=== PATIENT | male | born 1955 | race Caucasian/White ===

== ENCOUNTER 2016-10-04 18:33 | Inpatient (IN) | payer BC ==
[~2016-10-04] VITALS: Ht 177.8 cm; Wt 112.4 kg
[2016-10-04] MEDS ORDERED: LIPITOR 40MG TA40 MG PO (18:48)
[2016-10-04] MEDS ORDERED: GLUCOPHAGE1000 MG PO (18:48)
[2016-10-04] MEDS ORDERED: PRINZIDE 25 MG-1 TAB PO (18:49)
[2016-10-04] MEDS ORDERED: DIABETA 5MG5 MG/TAB PO (18:49)
[2016-10-04] MEDS ORDERED: ASPIRIN 81M81 MG/TA2 PO (18:50)
[2016-10-04 19:19] LABS: MEAN CELL VOLUME 66 fl (80.0-100.0); MEAN CORPUSCULAR HGB CONC 28 g/dl (33.0-37.0); MEAN PLATELET VOLUME 10.1 fl (7.4-10.4); PLATELET COUNT 295 K/mm3 (130-400); RED BLOOD COUNT 2.98 M/mm3 (4.20-5.60); REDCELL DISTRIBUTION WIDTH-CV 16.2 % (11.5-14.5); WHITE BLOOD COUNT 12.5 K/mm3 (4.8-10.8)
[2016-10-04 19:24] LABS: ADD PATHOLOGY DIFF REVIEW NO; HEMATOCRIT 19.6 % (42.0-52.0); HEMOGLOBIN 5.4 g/dl (13.5-18.0); MEAN CORPUSCULAR HEMOGLOBIN 18 pg (27.0-31.0)
[2016-10-04 19:25] LABS: INR 1.1 (0.8-3.0); PROTHROMBIN TIME 12.6 SECONDS (9.7-12.8)
[2016-10-04 19:28] LABS: PARTIAL THROMBOPLASTIN TIME 26.4 SECONDS (26.0-37.0)
[2016-10-04 19:35] LABS: ADJUSTED CALCIUM 9.1 mg/dL (8.4-10.2); ALANINE AMINOTRANSFERASE 26 U/L (21-72); ALBUMIN 3.4 gm/dL (3.5-5.0); ALKALINE PHOSPHATASE 68 U/L (50-136); ANION GAP 13 mmol/L (7-16); BILIRUBIN,TOTAL 0.4 mg/dL (0.0-1.0); BLOOD UREA NITROGEN 23 mg/dL (9-20); CALCIUM 8.6 mg/dL (8.4-10.2); CARBON DIOXIDE 25 mmol/L (22-30); CHLORIDE 101 mmol/L (98-107); CREATININE, serum 1.21 mg/dL (0.66-1.25); GLUCOSE 84 mg/dL (74-106); POTASSIUM 3.4 mmol/L (3.4-5.0); SODIUM 138 mmol/L (137-145); TOTAL PROTEIN 5.8 gm/dL (6.4-8.2)
[2016-10-04 19:36] LABS: C-REACTIVE PROTEIN 0.5 mg/dL (0.0-0.9)
[2016-10-04 19:44] LABS: B-TYPE NATRIURETIC PEPTIDE 221 pg/mL (0-125)
[2016-10-04 19:46] LABS: TROPONIN-I < 0.012 ng/mL (0.000-0.034)
[2016-10-04 19:58] LABS: BAND 5 % (0-10); METAMYELOCYTE 1 % (0-0); NEUTROPHILS 77 % (42.0-75.2); TOTAL CELLS COUNTED 100
[2016-10-04 19:59] LABS: HYPOCHROMIA 2+; MICROCYTOSIS 1+
[2016-10-04 20:00] LABS: PLATELET ESTIMATE NORMAL (NORMAL)
[2016-10-04 23:05] VITALS: BP 121/62; PULSE 95; TEMP 98.9
[2016-10-04 23:43] VITALS: BP 118/64; PULSE 83; TEMP 98.4
[2016-10-04 23:59] VITALS: BP 132/63; PULSE 87; TEMP 98.5
[2016-10-05] VITALS (14 sets, daily range): BP systolic 111–133; BP diastolic 56–82; PULSE 71–91; TEMP 97.8–98.8
[2016-10-05 07:50] LABS: BASO % 0.4 % (0.0-2.0); EOS # 0.1 (0.0-0.7); EOS % 1.2 % (0-4.0); GRAN % 72.4 % (42.2-75.2); LYMPH # 1.4 (1.2-3.4); LYMPH % 16.7 % (20.0-51.0); MEAN CELL VOLUME 69 fl (80.0-100.0); MEAN CORPUSCULAR HGB CONC 29 g/dl (33.0-37.0); MEAN PLATELET VOLUME 10.9 fl (7.4-10.4); MONO # 0.7 (0.1-0.6); MONO % 8.7 % (1.7-9.3); PLATELET COUNT 249 K/mm3 (130-400); RED BLOOD COUNT 3.09 M/mm3 (4.20-5.60); REDCELL DISTRIBUTION WIDTH-CV 18.6 % (11.5-14.5); WHITE BLOOD COUNT 8.3 K/mm3 (4.8-10.8)
[2016-10-05 07:52] LABS: HEMATOCRIT 21.4 % (42.0-52.0); HEMOGLOBIN 6.2 g/dl (13.5-18.0); MEAN CORPUSCULAR HEMOGLOBIN 20 pg (27.0-31.0)
[2016-10-05 07:54] LABS: POTASSIUM 3.3 mmol/L (3.4-5.0)
[2016-10-05 08:24] LABS: CREATININE, serum 0.85 mg/dL (0.66-1.25)
[2016-10-05 09:44] LABS: MAGNESIUM 1.8 mg/dL (1.6-2.3)
[2016-10-05 19:53] LABS: HEMATOCRIT 24.5 % (42.0-52.0); HEMOGLOBIN 7.2 g/dl (13.5-18.0)
[2016-10-06] VITALS (7 sets, daily range): BP systolic 104–131; BP diastolic 61–87; PULSE 69–77; TEMP 98.1–98.9
[2016-10-06 05:20] LABS: ADD PATHOLOGY DIFF REVIEW NO
[2016-10-06 05:26] LABS: HEMATOCRIT 24.1 % (42.0-52.0); MEAN CELL VOLUME 71 fl (80.0-100.0); MEAN CORPUSCULAR HEMOGLOBIN 20 pg (27.0-31.0); MEAN CORPUSCULAR HGB CONC 29 g/dl (33.0-37.0); MEAN PLATELET VOLUME 10.7 fl (7.4-10.4); PLATELET COUNT 228 K/mm3 (130-400); RED BLOOD COUNT 3.42 M/mm3 (4.20-5.60); REDCELL DISTRIBUTION WIDTH-CV 19.6 % (11.5-14.5); WHITE BLOOD COUNT 8.8 K/mm3 (4.8-10.8)
[2016-10-06 05:35] LABS: CALCIUM 7.8 mg/dL (8.4-10.2); CREATININE, serum 0.88 mg/dL (0.66-1.25); MAGNESIUM 1.9 mg/dL (1.6-2.3); POTASSIUM 4.1 mmol/L (3.4-5.0)
[2016-10-06 05:38] LABS: ANISOCYTOSIS 1+; BAND 4 % (0-10); HYPOCHROMIA 2+; MICROCYTOSIS 2+; NEUTROPHILS 71 % (42.0-75.2); PLATELET ESTIMATE NORMAL (NORMAL); TOTAL CELLS COUNTED 100
[2016-10-06] MEDS ORDERED: FERROUS SU325 MG/TAB PO (10:10)
[2016-10-06] MEDS ORDERED: PROTONIX 40MG T40 MG PO (10:11)
== END 2016-10-06 16:26 | disposition home or self-care (01) | DRG 375 ==
LOC: COL.ER 18:33 → MEDICAL 21:14
PROVIDERS: Family Medicine; Internal Medicine
PROC: 0DB48ZX Excision of Esophagogastric Junction, Via Natural or Artificial Opening Endoscopic, Diagnostic (ICD-10-PCS; principal; 2016-10-06)
DX: C16.0 Malignant neoplasm of cardia (principal); D62 Acute posthemorrhagic anemia; I12.9 Hypertensive chronic kidney disease with stage 1 through stage 4 chronic kidney disease, or unspecified chronic kidney disease; E11.22 Type 2 diabetes mellitus with diabetic chronic kidney disease; N18.3 Chronic kidney disease, stage 3 (moderate)
CPT/HCPCS: 99223-AI; 99233-AI; 99239; J2250; J3010; J7030; J7120; P9016; Q9967

== ENCOUNTER → 2016-10-09 | Outpatient (CLI) | payer BC ==
[~2016-10-09] MED LIST: ASPIRIN 81M81 MG/TA2 PO; DIABETA 5MG5 MG/TAB PO; FERROUS SU325 MG/TAB PO; GLUCOPHAGE1000 MG PO; LIPITOR 40MG TA40 MG PO; PERCOCET 325 MG1 TA2 PO; PRINZIDE 25 MG-1 TAB PO; PROTONIX 40MG T40 MG PO; ULTRAM 50MG TAB50 MG PO; ZOFRAN 4MG T4 MG/TAB PO
[2016-10-09 12:13] LABS: MEAN CELL VOLUME 73 fl (80.0-100.0); MEAN CORPUSCULAR HGB CONC 29 g/dl (33.0-37.0); MEAN PLATELET VOLUME 10.6 fl (7.4-10.4); PLATELET COUNT 234 K/mm3 (130-400)
[2016-10-09 12:15] LABS: HEMATOCRIT 29.1 % (42.0-52.0); HEMOGLOBIN 8.5 g/dl (13.5-18.0); MEAN CORPUSCULAR HEMOGLOBIN 21 pg (27.0-31.0)
[2016-10-09 12:28] LABS: ADJUSTED CALCIUM 9.1 mg/dL (8.4-10.2); BILIRUBIN,TOTAL 0.7 mg/dL (0.0-1.0); CALCIUM 8.3 mg/dL (8.4-10.2); CREATININE, serum 0.92 mg/dL (0.66-1.25); POTASSIUM 3.9 mmol/L (3.4-5.0); TOTAL PROTEIN 5.4 gm/dL (6.4-8.2)
== END ==
LOC: COL.LAB 11:32
PROVIDERS: Family Medicine
DX: D64.9 Anemia, unspecified (principal)

== ENCOUNTER 2016-12-31 23:22 | Observation (INO) | payer BC ==
[~2016-12-31] VITALS: Ht 175.3 cm; Wt 107.7 kg
[~2016-12-31 23:22] MED LIST changes: -PERCOCET 325 MG1 TA2 PO; -ULTRAM 50MG TAB50 MG PO; -ZOFRAN 4MG T4 MG/TAB PO
[2016-12-31 23:55] LABS: MEAN CELL VOLUME 75 fl (80.0-100.0); MEAN CORPUSCULAR HGB CONC 33 g/dl (33.0-37.0); PLATELET COUNT 100 K/mm3 (130-400); RED BLOOD COUNT 4.47 M/mm3 (4.20-5.60); REDCELL DISTRIBUTION WIDTH-CV 23.9 % (11.5-14.5)
[2016-12-31 23:59] LABS: HEMATOCRIT 33.3 % (42.0-52.0); MEAN CORPUSCULAR HEMOGLOBIN 25 pg (27.0-31.0)
[2017-01-01] VITALS (7 sets, daily range): BP systolic 91–126; BP diastolic 40–80; PULSE 61–100; TEMP 97.9–98.7
[2017-01-01 00:01] LABS: ADD PATHOLOGY DIFF REVIEW NO; WHITE BLOOD COUNT 1.9 K/mm3 (4.8-10.8)
[2017-01-01 00:15] LABS: ADJUSTED CALCIUM 8.9 mg/dL (8.4-10.2); ALANINE AMINOTRANSFERASE 42 U/L (21-72); ALBUMIN 3.5 gm/dL (3.5-5.0); ALKALINE PHOSPHATASE 73 U/L (50-136); ANION GAP 11 mmol/L (7-16); BILIRUBIN,TOTAL 0.4 mg/dL (0.0-1.0); BLOOD UREA NITROGEN 26 mg/dL (9-20); CALCIUM 8.5 mg/dL (8.4-10.2); CARBON DIOXIDE 28 mmol/L (22-30); CHLORIDE 95 mmol/L (98-107); CREATININE, serum 0.89 mg/dL (0.66-1.25); GLUCOSE 161 mg/dL (74-106); LIPASE 77 U/L (23-300); SODIUM 134 mmol/L (137-145); TOTAL PROTEIN 5.9 gm/dL (6.4-8.2)
[2017-01-01 00:16] LABS: BAND 31 % (0-10); EOSINOPHIL 1 % (0-4); NEUTROPHILS 44 % (42.0-75.2); TOTAL CELLS COUNTED 100
[2017-01-01 00:17] LABS: ANISOCYTOSIS 3+; PLATELET ESTIMATE NORMAL (NORMAL)
[2017-01-01 00:21] LABS: POTASSIUM 2.9 mmol/L (3.4-5.0)
[2017-01-01 00:24] LABS: B-TYPE NATRIURETIC PEPTIDE 470 pg/mL (0-125)
[2017-01-01 00:28] LABS: TROPONIN-I < 0.012 ng/mL (0.000-0.034)
[2017-01-01] MEDS ORDERED: PERCOCET 325 MG1 TA2 PO (02:18)
[2017-01-01] MEDS ORDERED: ZOFRAN 4MG T4 MG/TAB PO (02:19)
[2017-01-01 06:49] LABS: MEAN CELL VOLUME 76 fl (80.0-100.0); MEAN CORPUSCULAR HGB CONC 32 g/dl (33.0-37.0); PLATELET COUNT 83 K/mm3 (130-400); RED BLOOD COUNT 4.34 M/mm3 (4.20-5.60); REDCELL DISTRIBUTION WIDTH-CV 23.9 % (11.5-14.5); WHITE BLOOD COUNT 2.2 K/mm3 (4.8-10.8)
[2017-01-01 06:51] LABS: HEMATOCRIT 32.9 % (42.0-52.0); HEMOGLOBIN 10.6 g/dl (13.5-18.0); MEAN CORPUSCULAR HEMOGLOBIN 24 pg (27.0-31.0)
[2017-01-01 06:53] LABS: ANION GAP 12 mmol/L (7-16); BLOOD UREA NITROGEN 23 mg/dL (9-20); CALCIUM 8.3 mg/dL (8.4-10.2); CARBON DIOXIDE 25 mmol/L (22-30); CHLORIDE 95 mmol/L (98-107); CREATININE, serum 0.74 mg/dL (0.66-1.25); GLUCOSE 163 mg/dL (74-106); PHOSPHOROUS 3.1 mg/dL (2.5-4.5); POTASSIUM 3.4 mmol/L (3.4-5.0); SODIUM 132 mmol/L (137-145)
[2017-01-01 07:09] LABS: TROPONIN-I < 0.012 ng/mL (0.000-0.034)
[2017-01-01 14:08] LABS: MAGNESIUM 2.1 mg/dL (1.6-2.3)
[2017-01-02 03:21] VITALS: BP 83/60; PULSE 86; TEMP 98.2
[2017-01-02 06:33] VITALS: BP 101/63
[2017-01-02 06:53] LABS: MEAN CELL VOLUME 76 fl (80.0-100.0); MEAN CORPUSCULAR HGB CONC 32 g/dl (33.0-37.0); PLATELET COUNT 69 K/mm3 (130-400); RED BLOOD COUNT 3.89 M/mm3 (4.20-5.60); REDCELL DISTRIBUTION WIDTH-CV 24.2 % (11.5-14.5)
[2017-01-02 06:55] LABS: ADD PATHOLOGY DIFF REVIEW NO; HEMATOCRIT 29.7 % (42.0-52.0); HEMOGLOBIN 9.6 g/dl (13.5-18.0); MEAN CORPUSCULAR HEMOGLOBIN 25 pg (27.0-31.0); WHITE BLOOD COUNT 1.7 K/mm3 (4.8-10.8)
[2017-01-02 06:59] LABS: CALCIUM 7.9 mg/dL (8.4-10.2); CREATININE, serum 0.64 mg/dL (0.66-1.25); MAGNESIUM 1.6 mg/dL (1.6-2.3); POTASSIUM 3.3 mmol/L (3.4-5.0)
[2017-01-02 07:19] VITALS: BP 104/66; PULSE 69; TEMP 97.9
[2017-01-02 07:59] LABS: ANISOCYTOSIS 3+; BAND 32 % (0-10); EOSINOPHIL 2 % (0-4); METAMYELOCYTE 4 % (0-0); MICROCYTOSIS 1+; MYELOCYTE 3 % (0-0); NEUTROPHILS 46 % (42.0-75.2); PLATELET ESTIMATE DECREASED (NORMAL); TOTAL CELLS COUNTED 100
[2017-01-02 08:00] LABS: HYPOCHROMIA 2+; OVALOCYTES 2+
[2017-01-02 11:41] VITALS: BP 107/72; PULSE 92; TEMP 98.1
== END 2017-01-02 13:15 | disposition home or self-care (01) ==
LOC: COL.ER 23:22 → MEDICAL 01-01 01:52
PROVIDERS: Emergency Medicine; Internal Medicine; Nurse Practitioner Family
DX: R07.89 Other chest pain (principal); E87.6 Hypokalemia; E83.42 Hypomagnesemia; R11.2 Nausea with vomiting, unspecified; D89.9 Disorder involving the immune mechanism, unspecified; C15.9 Malignant neoplasm of esophagus, unspecified; D72.819 Decreased white blood cell count, unspecified; E87.1 Hypo-osmolality and hyponatremia; D69.6 Thrombocytopenia, unspecified; Z79.899 Other long term (current) drug therapy; I10 Essential (primary) hypertension; E78.5 Hyperlipidemia, unspecified; E11.9 Type 2 diabetes mellitus without complications
CPT/HCPCS: 99223-AI; 99239; G0378; J0692; J1170; J2405; J3010; J3370; J3475; J3480; J7030; J7050; Q9967

== ENCOUNTER → 2016-12-31 | Outpatient (CLI) | payer BC | LOC: COL.RAD 08:05 | DX: R55 Syncope and collapse (principal); R42 Dizziness and giddiness ==

== ENCOUNTER 2017-01-05 20:58 | Emergency (ER) | payer BC ==
[~2017-01-05] VITALS: Ht 177.8 cm; Wt 106.8 kg
[~2017-01-05 20:58] MED LIST changes: +PERCOCET 325 MG1 TA2 PO; +ZOFRAN 4MG T4 MG/TAB PO
[2017-01-05 20:59] VITALS: TEMP 98.9
[2017-01-05] MEDS ORDERED: PRINZIDE 25 MG-1 TAB PO (21:06)
[2017-01-05 21:36] LABS: HEMATOCRIT 30.6 % (42.0-52.0); HEMOGLOBIN 10.3 g/dl (13.5-18.0); MEAN CELL VOLUME 75 fl (80.0-100.0); MEAN CORPUSCULAR HEMOGLOBIN 25 pg (27.0-31.0); MEAN CORPUSCULAR HGB CONC 34 g/dl (33.0-37.0); MEAN PLATELET VOLUME 10.7 fl (7.4-10.4); PLATELET COUNT 128 K/mm3 (130-400); REDCELL DISTRIBUTION WIDTH-CV 23.6 % (11.5-14.5); WHITE BLOOD COUNT 2.2 K/mm3 (4.8-10.8)
[2017-01-05 21:37] LABS: ADD PATHOLOGY DIFF REVIEW NO
[2017-01-05 21:46] LABS: ADJUSTED CALCIUM 9.2 mg/dL (8.4-10.2); ALBUMIN 3.2 gm/dL (3.5-5.0); BILIRUBIN,TOTAL 0.5 mg/dL (0.0-1.0); C-REACTIVE PROTEIN 5.6 mg/dL (0.0-0.9); CALCIUM 8.6 mg/dL (8.4-10.2); CREATININE, serum 0.64 mg/dL (0.66-1.25); MAGNESIUM 1.3 mg/dL (1.6-2.3); PHOSPHOROUS 3.6 mg/dL (2.5-4.5); POTASSIUM 3.1 mmol/L (3.4-5.0); TOTAL PROTEIN 5.9 gm/dL (6.4-8.2)
[2017-01-05 21:56] LABS: BAND 18 % (0-10); BASOPHIL 1 % (0-2); EOSINOPHIL 1 % (0-4); NEUTROPHILS 61 % (42.0-75.2); TOTAL CELLS COUNTED 100
[2017-01-05 21:57] LABS: ANISOCYTOSIS 3+; MICROCYTOSIS 2+; PLATELET ESTIMATE NORMAL (NORMAL); POIKILOCYTOSIS 1+
[2017-01-05 21:58] LABS: ERYTHROCYTE SEDIMENTATION RATE 67 mm/hr (0-30)
[2017-01-05 23:04] LABS: PH 6 (5-8); SQUAMOUS EPITHELIAL 0-2 /hpf; URINE APPEARANCE Clear; URINE BACTERIA None Seen /hpf; URINE BILIRUBIN Negative (NEGATIVE); URINE BLOOD Negative (NEGATIVE); URINE COLOR Yellow; URINE GLUCOSE Negative (NEGATIVE); URINE KETONE Negative (NEGATIVE); URINE RBC 0-2 /hpf; URINE UROBILINOGEN Negative (NEGATIVE)
[2017-01-05] MEDS ORDERED: ULTRAM 50MG TAB50 MG PO (23:31)
[2017-01-06 01:05] VITALS: BP 128/89; PULSE 81
== END 2017-01-06 01:10 | disposition home or self-care (01) ==
LOC: COL.ER 20:58
PROVIDERS: Emergency Medicine
DX: R51 Headache (principal); K21.9 Gastro-esophageal reflux disease without esophagitis; E11.9 Type 2 diabetes mellitus without complications; D50.9 Iron deficiency anemia, unspecified; Z85.01 Personal history of malignant neoplasm of esophagus; Z92.21 Personal history of antineoplastic chemotherapy; Z90.12 Acquired absence of left breast and nipple; Z98.890 Other specified postprocedural states; Z79.84 Long term (current) use of oral hypoglycemic drugs
CPT/HCPCS: J1170; J2405; J3475; J3480; J7030

== ENCOUNTER 2017-06-03 16:27 | Inpatient (IN) | payer BC ==
[~2017-06-03] VITALS: Ht 177.8 cm; Wt 98.2 kg
[~2017-06-03 16:27] MED LIST changes: +ULTRAM 50MG TAB50 MG PO
[2017-06-03 17:26] LABS: INFLUENZA A NEGATIVE; INFLUENZA B NEGATIVE
[2017-06-03 17:29] LABS: MEAN CELL VOLUME 78 fl (80.0-100.0); MEAN CORPUSCULAR HGB CONC 32 g/dl (33.0-37.0); PLATELET COUNT 198 K/mm3 (130-400); RED BLOOD COUNT 3.07 M/mm3 (4.20-5.60); REDCELL DISTRIBUTION WIDTH-CV 19.8 % (11.5-14.5)
[2017-06-03 17:37] LABS: HEMOGLOBIN 7.7 g/dl (13.5-18.0); MEAN CORPUSCULAR HEMOGLOBIN 25 pg (27.0-31.0)
[2017-06-03 17:42] LABS: ALBUMIN 3.1 gm/dL (3.5-5.0); BILIRUBIN,TOTAL 0.8 mg/dL (0.0-1.0); CALCIUM 8.4 mg/dL (8.4-10.2); CREATININE, serum 0.65 mg/dL (0.66-1.25); POTASSIUM 3.9 mmol/L (3.4-5.0); TOTAL PROTEIN 5.8 gm/dL (6.4-8.2)
[2017-06-03 17:56] LABS: COLLECTION METHOD CLEAN CATCH
[2017-06-03 18:01] LABS: MUCOUS Present /lpf; PH 8 (5-8); SQUAMOUS EPITHELIAL 0-2 /hpf; URINE APPEARANCE Clear; URINE BACTERIA None Seen /hpf; URINE BILIRUBIN Negative (NEGATIVE); URINE BLOOD Negative (NEGATIVE); URINE COLOR Yellow; URINE GLUCOSE 2+ (NEGATIVE); URINE KETONE Negative (NEGATIVE); URINE LEUKOCYTE ESTERASE Negative (NEGATIVE); URINE NITRATE Negative (NEGATIVE); URINE PROTEIN(semi-quant) 1+ (NEGATIVE); URINE RBC 0-2 /hpf
[2017-06-03 18:35] LABS: ANISOCYTOSIS 1+; BASOPHIL 2 % (0-2); EOSINOPHIL 4 % (0-4); HYPOCHROMIA 2+; LYMPHOCYTE 20 % (20.0-51.0); METAMYELOCYTE 8 % (0-0); MICROCYTOSIS 1+; MYELOCYTE 14 % (0-0); NEUTROPHILS 26 % (42.0-75.2); PLATELET ESTIMATE NORMAL (NORMAL); POLYCHROMASIA 1+
[2017-06-03] MEDS ORDERED: PROTONIX 40MG T40 MG PO (18:38)
[2017-06-03] MEDS ORDERED: FERRO-TIME325 MG PO (18:38)
[2017-06-03] MEDS ORDERED: GLUCOPHAGE1000 MG PO (18:39)
[2017-06-03] MEDS ORDERED: MARINOL 2.5MG2.5 MG PO (18:41)
[2017-06-03] MEDS ORDERED: NORCO 325 MG-51 TAB PO (18:41)
[2017-06-03] MEDS ORDERED: MIRTAZAPINE7.5 MG PO (18:42)
[2017-06-03] MEDS ORDERED: SENOKOT8.6 MG PO (18:42)
[2017-06-03] MEDS ORDERED: NATURAL MAGNES200 MG PO (18:43)
[2017-06-03] MEDS ORDERED: TAXOL30 (19:05)
[2017-06-03] MEDS ORDERED: PARAPLATIN150 MG/VIA (19:05)
[2017-06-03] MEDS ORDERED: LEUCOVORIN (19:06)
[2017-06-03 20:14] VITALS: BP 80/52; PULSE 88; TEMP 98.9
[2017-06-04] VITALS (11 sets, daily range): BP systolic 97–130; BP diastolic 61–75; PULSE 91–106; TEMP 98.3–100.3
[2017-06-04 07:26] LABS: MEAN CELL VOLUME 81 fl (80.0-100.0); MEAN CORPUSCULAR HGB CONC 30 g/dl (33.0-37.0); MEAN PLATELET VOLUME 11.4 fl (7.4-10.4); PLATELET COUNT 185 K/mm3 (130-400); RED BLOOD COUNT 2.66 M/mm3 (4.20-5.60); REDCELL DISTRIBUTION WIDTH-CV 19.9 % (11.5-14.5)
[2017-06-04 07:29] LABS: HEMATOCRIT 21.6 % (42.0-52.0); HEMOGLOBIN 6.5 g/dl (13.5-18.0); MEAN CORPUSCULAR HEMOGLOBIN 24 pg (27.0-31.0)
[2017-06-04 07:42] LABS: ALBUMIN 2.5 gm/dL (3.5-5.0); BILIRUBIN,TOTAL 0.5 mg/dL (0.0-1.0); CALCIUM 7.9 mg/dL (8.4-10.2); CREATININE, serum 0.61 mg/dL (0.66-1.25); POTASSIUM 3.8 mmol/L (3.4-5.0)
[2017-06-04 08:42] LABS: PATHOLOGY DIFF REVIEW OK
[2017-06-04 09:58] LABS: BAND 30 % (0-10); LYMPHOCYTE 62 % (20.0-51.0); NEUTROPHILS 2 % (42.0-75.2)
[2017-06-04 09:59] LABS: HYPOCHROMIA 2+; PLATELET ESTIMATE NORMAL (NORMAL)
[2017-06-04 10:00] LABS: ANISOCYTOSIS 1+
[2017-06-04 17:33] LABS: HEMATOCRIT 23.6 % (42.0-52.0); HEMOGLOBIN 7.5 g/dl (13.5-18.0)
[2017-06-05] VITALS (8 sets, daily range): BP systolic 111–156; BP diastolic 63–89; PULSE 63–140; TEMP 97.9–99.1
[2017-06-05 07:03] LABS: MEAN CELL VOLUME 81 fl (80.0-100.0); MEAN CORPUSCULAR HGB CONC 32 g/dl (33.0-37.0); MEAN PLATELET VOLUME 11.4 fl (7.4-10.4); PLATELET COUNT 208 K/mm3 (130-400); RED BLOOD COUNT 2.97 M/mm3 (4.20-5.60)
[2017-06-05 07:07] LABS: HEMOGLOBIN 7.6 g/dl (13.5-18.0); MEAN CORPUSCULAR HEMOGLOBIN 26 pg (27.0-31.0)
[2017-06-05 07:21] LABS: CALCIUM 7.8 mg/dL (8.4-10.2); CREATININE, serum 0.54 mg/dL (0.66-1.25); POTASSIUM 3.5 mmol/L (3.4-5.0)
[2017-06-05 09:35] LABS: BAND 37 % (0-10); EOSINOPHIL 2 % (0-4); LYMPHOCYTE 21 % (20.0-51.0); METAMYELOCYTE 2 % (0-0); NEUTROPHILS 22 % (42.0-75.2); PLATELET ESTIMATE NORMAL (NORMAL)
[2017-06-05 09:36] LABS: ANISOCYTOSIS 1+; HYPOCHROMIA 1+; MICROCYTOSIS 1+
[2017-06-05 09:37] LABS: DOHLE BODIES PRESENT
[2017-06-06 03:29] VITALS: BP 146/76; PULSE 88; TEMP 97.6
[2017-06-06 06:53] LABS: MEAN CELL VOLUME 80 fl (80.0-100.0); MEAN CORPUSCULAR HGB CONC 32 g/dl (33.0-37.0); MEAN PLATELET VOLUME 11.1 fl (7.4-10.4); PLATELET COUNT 235 K/mm3 (130-400); RED BLOOD COUNT 3.13 M/mm3 (4.20-5.60); REDCELL DISTRIBUTION WIDTH-CV 19.4 % (11.5-14.5)
[2017-06-06 06:55] LABS: HEMOGLOBIN 7.9 g/dl (13.5-18.0); MEAN CORPUSCULAR HEMOGLOBIN 25 pg (27.0-31.0)
[2017-06-06 07:14] LABS: CALCIUM 7.9 mg/dL (8.4-10.2); CREATININE, serum 0.49 mg/dL (0.66-1.25); POTASSIUM 3.3 mmol/L (3.4-5.0)
[2017-06-06 07:34] LABS: BAND 63 % (0-10); EOSINOPHIL 1 % (0-4); LYMPHOCYTE 4 % (20.0-51.0); METAMYELOCYTE 1 % (0-0); MYELOCYTE 1 % (0-0); NEUTROPHILS 17 % (42.0-75.2); NUCLEATED RED BLOOD CELL 3 (0-6)
[2017-06-06 07:35] LABS: MICROCYTOSIS 1+; POLYCHROMASIA 1+; TOXIC GRANULATION PRESENT
[2017-06-06 07:36] LABS: DOHLE BODIES PRESENT
[2017-06-06 07:38] LABS: HYPOCHROMIA 1+; PLATELET ESTIMATE NORMAL (NORMAL)
[2017-06-06 07:48] VITALS: BP 159/84; PULSE 95; TEMP 98.3
[2017-06-06 12:08] VITALS: BP 151/84; PULSE 90; TEMP 98.5
[2017-06-06] MEDS ORDERED: LEVAQUIN 5500 MG/TA1 PO (15:39)
== END 2017-06-06 16:30 | disposition home or self-care (01) | DRG 809 ==
LOC: COL.ER 16:27 → MEDICAL 18:28
PROVIDERS: Emergency Medicine; Internal Medicine Pulmonary Disease; Physician Assistant
DX: D70.9 Neutropenia, unspecified (principal); E87.1 Hypo-osmolality and hyponatremia; C15.9 Malignant neoplasm of esophagus, unspecified; K94.13 Enterostomy malfunction; R50.81 Fever presenting with conditions classified elsewhere; I10 Essential (primary) hypertension; E11.9 Type 2 diabetes mellitus without complications; E87.8 Other disorders of electrolyte and fluid balance, not elsewhere classified; D64.81 Anemia due to antineoplastic chemotherapy; Z79.84 Long term (current) use of oral hypoglycemic drugs
CPT/HCPCS: 99223-AI; 99232-AI; 99238; J0692; J1447; J1644; J1885; J7030; P9040

== ENCOUNTER → 2017-11-25 | Outpatient (CLI) | payer BC ==
[~2017-11-25] MED LIST changes: +FERRO-TIME325 MG PO; +LEUCOVORIN; +LEVAQUIN 5500 MG/TA1 PO; +MARINOL 2.5MG2.5 MG PO; +MIRTAZAPINE7.5 MG PO; +NATURAL MAGNES200 MG PO; +NORCO 325 MG-51 TAB PO; +PARAPLATIN150 MG/VIA; +SENOKOT8.6 MG PO; +TAXOL30
== END ==
LOC: COL.CARD 07:47
DX: I10 Essential (primary) hypertension (principal)

== ENCOUNTER 2021-07-19 19:29 | Inpatient (IN) | payer MEDICARE, BC ==
[~2021-07-19] VITALS: Ht 177.8 cm; Wt 81.7 kg
[2021-07-19 20:35] LABS: BASO % 0.1 % (0.0-2.0); GRAN # 7.2 K/mm3 (1.4-6.5); GRAN % 84.6 % (42.2-75.2); HEMOGLOBIN 16.1 g/dl (13.5-18.0); LYMPH # 0.7 K/mm3 (1.2-3.4); MEAN CELL VOLUME 85 fl (80.0-100.0); MEAN CORPUSCULAR HEMOGLOBIN 29 pg (27-31); MEAN CORPUSCULAR HGB CONC 34 g/dl (33.0-37.0); MEAN PLATELET VOLUME 10.7 fl (7.4-10.4); MONO # 0.6 K/mm3 (0.1-0.6); MONO % 6.9 % (1.7-9.3); PLATELET COUNT 188 K/mm3 (130-400); RED BLOOD COUNT 5.55 M/mm3 (4.20-5.60)
[2021-07-19 20:52] LABS: ALBUMIN 3.2 gm/dL (3.4-4.8); BILIRUBIN,TOTAL 0.8 mg/dL (0.2-1.2); CALCIUM 8.7 mg/dL (8.4-10.2); CREATININE, serum 1.1 mg/dL (0.72-1.25); POTASSIUM 3.6 mmol/L (3.5-4.5); TOTAL PROTEIN 7.2 gm/dL (6.2-8.1)
[2021-07-19 20:58] LABS: TROPONIN-I 0.012 ng/mL (0.00-0.033)
[2021-07-19 21:33] LABS: COLLECTION METHOD CLEAN CATCH
[2021-07-19 21:38] LABS: MUCOUS Present (NOT PRESENT); PH 5 (5-8); SQUAMOUS EPITHELIAL None Seen /hpf (0-10); URINE APPEARANCE Clear (CLEAR/HAZY); URINE BACTERIA None Seen /hpf (NONE SEEN); URINE BILIRUBIN Negative (NEGATIVE); URINE BLOOD Negative (NEGATIVE); URINE COLOR Yellow (YELLOW); URINE GLUCOSE Negative (NEGATIVE); URINE KETONE 1+ (NEGATIVE); URINE LEUKOCYTE ESTERASE Negative (NEGATIVE); URINE NITRATE Negative (NEGATIVE); URINE PROTEIN(semi-quant) Negative (NEGATIVE); URINE RBC None Seen /hpf (0-2); URINE UROBILINOGEN Negative (NEGATIVE)
[2021-07-20] VITALS (7 sets, daily range): BP systolic 118–126; BP diastolic 69–75; PULSE 70–81; TEMP 97.8–99
--- NOTE | 2021-07-20 01:21 | NUR ---
PATIENT ARRIVED TO ROOM 303 FROM THE ED AT THIS TIME. PATIENT IS ALERT AND ORIENTED X'S 4. V/S STABLE. PATIENT ORIENTED TO ROOM. HOB ELEVATED TO 45 DEGREE ANGLE. NO REQUESTS OR CONCERNS VERBALIZED BY PATIENT AT THIS TIME. NO S/S OF DISTRESS. CONT ON 5L NC.
--- NOTE | 2021-07-20 05:10 | NUR ---
PATIENT IS PLEASANT. STATES HE IS ALREADY FEELING A LITTLE BIT BETTER. HE HAS BEEN ABLE TO DRINK WATER AND EAT A JELLO. NO NEW ISSUES NOTED OR REPORTED BY PATIENT. VITAL SIGNS STABLE.
[2021-07-20 07:29] LABS: GRAN # 5.6 K/mm3 (1.4-6.5); GRAN % 84.7 % (42.2-75.2); HEMATOCRIT 42.3 % (42.0-52.0); HEMOGLOBIN 14.3 g/dl (13.5-18.0); LYMPH # 0.6 K/mm3 (1.2-3.4); LYMPH % 9.5 % (20.0-51.0); MEAN CELL VOLUME 87 fl (80.0-100.0); MEAN CORPUSCULAR HEMOGLOBIN 29 pg (27-31); MEAN CORPUSCULAR HGB CONC 34 g/dl (33.0-37.0); MEAN PLATELET VOLUME 11.3 fl (7.4-10.4); MONO # 0.3 K/mm3 (0.1-0.6); MONO % 5.2 % (1.7-9.3); PLATELET COUNT 180 K/mm3 (130-400); RED BLOOD COUNT 4.88 M/mm3 (4.20-5.60); REDCELL DISTRIBUTION WIDTH-CV 12.9 % (11.5-14.5)
[2021-07-20 07:44] LABS: CALCIUM 7.7 mg/dL (8.4-10.2); CREATININE, serum 0.92 mg/dL (0.72-1.25); POTASSIUM 3.8 mmol/L (3.5-4.5)
--- NOTE | 2021-07-20 13:42 | NUR ---
SW completed intake with spouse due to patient being unable to be reached. Spouse Marietta [phone] provides she and patient live in [facility], patient does not utilize DME and is independent with ADL's. Spouse stated PCP is Dr. Michaud, and pharmacy is [facility]. Spouse provides that patient does not have any one documented as DPOA-HC. Plan is to return to home when DC. Spouse had no questions or concerns at this time. SW will continue to follow. DC plan: home with spouse
--- NOTE | 2021-07-20 23:11 | NUR ---
Patient sitting up in bed and watching TV upon enter the room. Patient alert and oriented. Patient denies any pain or discomfort. Denies SOB or dyspnea. Patient currently on 5L oxygen via NC. Breathing even and unlabored. No apparent distress noted. All scheduled meds given per JUL. Call light in reach. Will continue to monitor.
[2021-07-21 04:07] VITALS: BP 117/72; PULSE 64; TEMP 98
[2021-07-21 08:27] VITALS: BP 110/63; PULSE 78; TEMP 98.2
[2021-07-21 11:27] VITALS: BP 112/68; PULSE 75; TEMP 98.5
--- NOTE | 2021-07-21 11:46 | NUR ---
PT ASSESSED. NO COMPLAINTS OF PAIN OR DYSPNEA. NO SIGNS OR SYMPTOMS OF DISTRESS. CALL LIGHT WITHIN REACH.
[2021-07-21 16:31] VITALS: BP 130/77; PULSE 81; TEMP 98
[2021-07-21 19:13] VITALS: BP 116/70; PULSE 77; TEMP 98.7
[2021-07-21 23:33] VITALS: BP 131/74; PULSE 75; TEMP 98.1
[2021-07-22] VITALS (7 sets, daily range): BP systolic 106–141; BP diastolic 7–82; PULSE 64–91; TEMP 97.5–99.6
[2021-07-22 06:25] LABS: BASO % 0.1 % (0.0-2.0); GRAN # 8.4 K/mm3 (1.4-6.5); GRAN % 86.9 % (42.2-75.2); HEMATOCRIT 42.4 % (42.0-52.0); HEMOGLOBIN 14.5 g/dl (13.5-18.0); LYMPH # 0.6 K/mm3 (1.2-3.4); LYMPH % 6.4 % (20.0-51.0); MEAN CELL VOLUME 85 fl (80.0-100.0); MEAN CORPUSCULAR HEMOGLOBIN 29 pg (27-31); MEAN CORPUSCULAR HGB CONC 34 g/dl (33.0-37.0); MEAN PLATELET VOLUME 11.2 fl (7.4-10.4); MONO # 0.6 K/mm3 (0.1-0.6); MONO % 5.7 % (1.7-9.3); PLATELET COUNT 202 K/mm3 (130-400); RED BLOOD COUNT 4.98 M/mm3 (4.20-5.60); REDCELL DISTRIBUTION WIDTH-CV 12.7 % (11.5-14.5)
[2021-07-22 06:51] LABS: C-REACTIVE PROTEIN 5.12 mg/dL (0.00-0.50); CALCIUM 7.8 mg/dL (8.4-10.2); CREATININE, serum 0.78 mg/dL (0.72-1.25); MAGNESIUM 2.1 mg/dL (1.6-2.6); POTASSIUM 3.6 mmol/L (3.5-4.5)
--- NOTE | 2021-07-22 09:27 | NUR ---
Patient to be on chemotherapy precautions for use of paclitaxel (Taxol) for 10 days after last dose. Per current med rec, last dose is unknown so precautions are ongoing. Precautions should include double chemotherapy test gloves for handling urine and feces.
--- NOTE | 2021-07-22 09:39 | NUR ---
PT ASSESSED. NO COMPLAINTS OF PAIN OR DYSPNEA. NO OTHER CONCERNS AT THIS TIME. CALL LIGHT WITHIN REACH
--- NOTE | 2021-07-22 09:42 | NUR ---
Patient to be on chemotherapy precautions for use of paclitaxel (Taxol) for 10 days after last dose. Per current med rec, last dose is unknown so precautions are ongoing. Precautions and PPE should include double chemotherapy tested gloves and chemo gown for handling urine and feces.
[2021-07-23 03:33] VITALS: BP 129/79; PULSE 68; TEMP 97.6
--- NOTE | 2021-07-23 06:25 | NUR ---
PATIENT PLACED ON AIRVO AT APPROXIMATELY 0300. PATIENT IS NOT SLEEPING WELL EVEN WITH THE 9MG OF MELATONIN. WHEN ASKED PATIENT HOW HE WAS FEELING COMPARED TO WHEN HE WAS ADMITTED HE STATED HE FEELS MUCH WORSE. ENCOURAGED PATIENT TO CONTINUE TO USE THE INCENTIVE SPIROMETER. NO OTHER ISSUES NOTED OR REPORTED BY PATIENT
[2021-07-23 06:43] LABS: BASO % 0.1 % (0.0-2.0); GRAN # 11.7 K/mm3 (1.4-6.5); GRAN % 88.5 % (42.2-75.2); HEMATOCRIT 41.9 % (42.0-52.0); HEMOGLOBIN 14.4 g/dl (13.5-18.0); LYMPH # 0.8 K/mm3 (1.2-3.4); MEAN CELL VOLUME 85 fl (80.0-100.0); MEAN CORPUSCULAR HEMOGLOBIN 29 pg (27-31); MEAN CORPUSCULAR HGB CONC 34 g/dl (33.0-37.0); MEAN PLATELET VOLUME 11.2 fl (7.4-10.4); MONO # 0.6 K/mm3 (0.1-0.6); MONO % 4.3 % (1.7-9.3); PLATELET COUNT 206 K/mm3 (130-400); RED BLOOD COUNT 4.94 M/mm3 (4.20-5.60); REDCELL DISTRIBUTION WIDTH-CV 12.7 % (11.5-14.5)
[2021-07-23 07:00] LABS: CALCIUM 8.1 mg/dL (8.4-10.2); CREATININE, serum 0.74 mg/dL (0.72-1.25); POTASSIUM 3.4 mmol/L (3.5-4.5)
[2021-07-23 08:15] VITALS: BP 110/62; PULSE 86; TEMP 98.3
--- NOTE | 2021-07-23 09:47 | NUR ---
PT ASSESSED. NO COMPLAINTS OF PAIN OR DYSPNEA. NO SIGNS OR SYMPTOMS OF DISTRESS. CALL LIGHT WITHIN REACH
--- NOTE | 2021-07-23 11:45 | NUR ---
[facility] rounded with Hospitalist team. Patient is currently on 60 liters of oxygen. Hospitalist does not want [facility] referral at this time, would like to reevaluate later this week.
[2021-07-23 12:22] VITALS: BP 129/73; PULSE 82; TEMP 98.8
[2021-07-23 17:05] VITALS: BP 141/87; PULSE 74; TEMP 98.2
[2021-07-23 19:39] VITALS: BP 132/86; PULSE 75; TEMP 97.8
--- NOTE | 2021-07-23 21:30 | NUR ---
Patient is resting in bed, alert and oriented x 4, AIRVO in place 60L and 92%. Denies pain, nausea or vomiting. Assessment completed, medications provided. No further needs at this time. Call light within reach.
[2021-07-24] VITALS (518 sets, daily range): BP systolic 124–154; BP diastolic 70–90; PULSE 60–81; TEMP 97.4–99.2; O2SAT 93–100
--- NOTE | 2021-07-24 05:18 | NUR ---
Patient continues with airvo 60L and 80-90%FiO2. VSS, mild HTN. Denies pain, nausea or vomiting. Report will be given to day RN.
[2021-07-24 06:44] LABS: CREATININE, serum 0.71 mg/dL (0.72-1.25); POTASSIUM 3.9 mmol/L (3.5-4.5)
[2021-07-24 06:53] LABS: HEMATOCRIT 40.4 % (42.0-52.0); HEMOGLOBIN 13.8 g/dl (13.5-18.0); MEAN CELL VOLUME 87 fl (80.0-100.0); MEAN CORPUSCULAR HEMOGLOBIN 30 pg (27-31); MEAN CORPUSCULAR HGB CONC 34 g/dl (33.0-37.0); MEAN PLATELET VOLUME 11.7 fl (7.4-10.4); PLATELET COUNT 213 K/mm3 (130-400); RED BLOOD COUNT 4.67 M/mm3 (4.20-5.60); REDCELL DISTRIBUTION WIDTH-CV 12.9 % (11.5-14.5)
[2021-07-24 08:03] LABS: ARTERIAL BLD GAS O2 SATURATION 83.8 % (92-100); ARTERIAL BLOOD GAS HCO3 22.1 meq/L (22-26); ARTERIAL BLOOD GAS PCO2 29.3 mmHg (35-45); ARTERIAL BLOOD GAS PO2 42.7 mmHg (80-100)
[2021-07-24 08:50] LABS: BAND 1 % (0-10); LYMPHOCYTE 1 % (20.0-51.0); NEUTROPHILS 96 % (42.0-75.2)
[2021-07-24 08:51] LABS: BURR CELLS 1+; PLATELET ESTIMATE NORMAL (NORMAL)
--- NOTE | 2021-07-24 09:45 | NUR ---
PT TRANSFERED TO ICU FROM MEDICAL FLOOR DUE TO INCREASED OXYGEN REQUIREMENTS. REPORT RECEIVED FROM MARCELINA ROMERO. PT WAS ABLE TO TRANSFER FROM BED TO BED WITH MINIMAL ASSISTANCE. LIES SUPINE IN BED AND WEARS BIPAP. PT STATES HE FEELS VERY TIRED FROM NOT SLEEPING LAST NIGHT. PICC LINE TO RIGHT UPPER ARM; BOTH LINES SALINE LOCKED. PLAN TO REPEAT ABG AT 1500.
--- NOTE | 2021-07-24 10:17 | NUR ---
ASSISTED PT TO CT AND THEN ICU, REPORT CALLED TO ICU IN TRANSIT. DR. CASE AT BEDSIDE JUST BEFORE TRANSPORT.
--- NOTE | 2021-07-24 12:46 | NUR ---
Patient transferred to the ICU and is currently on bipap.
--- NOTE | 2021-07-24 13:38 | NUR ---
PT RESTING QUIETLY WITH BIPAP ON. OFFERS NO COMPLAINTS. TAKES OFF BIPAP BRIEFLY TO TAKE MEDICATIONS AND SIPS OF WATER.
[2021-07-24 15:57] LABS: ARTERIAL BLD GAS O2 SATURATION 97.6 % (92-100); ARTERIAL BLD GAS TCO2 CT 25.1; ARTERIAL BLOOD GAS BASE EXCESS 1.1 (-2-2); ARTERIAL BLOOD GAS HCO3 24.1 meq/L (22-26); ARTERIAL BLOOD GAS PCO2 33.7 mmHg (35-45); ARTERIAL BLOOD GAS PO2 96.5 mmHg (80-100); ARTERIAL BLOOD GAS pH 7.47 (7.35-7.45)
--- NOTE | 2021-07-24 16:06 | NUR ---
THIS NURSE CALLED PT'S , DEVIKA TO UPDATE HER ON PT'S CONDITION. LET HER KNOW THAT ABG LOOKS IMPROVED FROM THIS MORNING AND DISCUSSED POC. DEVIKA VERBALIZED UNDERSTANDING AND WILL CALL IN AM FOR UPDATE.
--- NOTE | 2021-07-24 16:09 | NUR ---
PT HAS SLEPT MAJORITY OF THE DAY. STATES HE HAS NO APPETITE AND DOES NOT FEEL LIKE ORDERING OR EATING SUPPER. PT DOES HAVE MODERATE AMOUNT OF DRIED BLOOD ON TISSUE WHEN BLOWING NOSE; EXPLAINED THAT IT IS LIKELY DUE TO THE BIPAP. PT OFFERS NO COMPLAINTS AND STATES HE DOES NOT HAVE ANY PAIN AT THIS TIME.
--- NOTE | 2021-07-24 19:30 | NUR ---
Report received from MARCELINA Davey. Patient resting in bed with Bipap on. VS WNL. Care taken over at this time.
--- NOTE | 2021-07-24 23:00 | NUR ---
Patient was able to move self around in bed during assessment and use of urinal/bedpan. No complaints. Patient encouraged to taken in fluids and food. He only wants water. Will continue to monitor.
[2021-07-25] VITALS (1149 sets, daily range): BP systolic 121–147; BP diastolic 84–99; PULSE 53–78; TEMP 97.2–99.1; O2SAT 77–100
--- NOTE | 2021-07-25 02:16 | NUR ---
Patient continues to rest comfortably. I check in on him and ask if he has any needs. He states he is fine and doesn't need anything. Will continue to monitor.
[2021-07-25 04:42] LABS: ARTERIAL BLD GAS O2 SATURATION 89.5 % (92-100); ARTERIAL BLD GAS TCO2 CT 20.5; ARTERIAL BLOOD GAS HCO3 19.6 meq/L (22-26); ARTERIAL BLOOD GAS PCO2 28.9 mmHg (35-45); ARTERIAL BLOOD GAS PO2 52.5 mmHg (80-100); ARTERIAL BLOOD GAS pH 7.45 (7.35-7.45)
[2021-07-25 04:43] LABS: HEMATOCRIT 41.3 % (42.0-52.0); HEMOGLOBIN 14.2 g/dl (13.5-18.0); MEAN CELL VOLUME 85 fl (80.0-100.0); MEAN CORPUSCULAR HEMOGLOBIN 29 pg (27-31); MEAN CORPUSCULAR HGB CONC 34 g/dl (33.0-37.0); MEAN PLATELET VOLUME 11.4 fl (7.4-10.4); PLATELET COUNT 212 K/mm3 (130-400); RED BLOOD COUNT 4.86 M/mm3 (4.20-5.60); REDCELL DISTRIBUTION WIDTH-CV 12.8 % (11.5-14.5)
[2021-07-25 05:04] LABS: CALCIUM 8.3 mg/dL (8.4-10.2); CREATININE, serum 0.74 mg/dL (0.72-1.25); POTASSIUM 4.4 mmol/L (3.5-4.5)
[2021-07-25 05:37] LABS: BAND 2 % (0-10); LYMPHOCYTE 3 % (20.0-51.0); NEUTROPHILS 93 % (42.0-75.2)
[2021-07-25 05:38] LABS: BURR CELLS 1+; PLATELET ESTIMATE NORMAL (NORMAL)
--- NOTE | 2021-07-25 08:00 | NUR ---
Resumed care of PT, all lines, tubes, GTTs checked and verified. PT is still on BIPAP. PT stated he is comfortable, and in no pain. Today goal is to place PT on AIRVO and encourage the PT to eat.
--- NOTE | 2021-07-25 10:00 | NUR ---
PT is placed on airvo at 60 l 90% and tolerating well.
[2021-07-25 16:06] LABS: ARTERIAL BLD GAS O2 SATURATION 98.2 % (92-100); ARTERIAL BLD GAS TCO2 CT 20.8; ARTERIAL BLOOD GAS BASE EXCESS -2.6 (-2-2); ARTERIAL BLOOD GAS PCO2 28.9 mmHg (35-45); ARTERIAL BLOOD GAS pH 7.46 (7.35-7.45)
[2021-07-25 16:07] LABS: ARTERIAL BLOOD GAS PO2 125.9 mmHg (80-100)
--- NOTE | 2021-07-25 18:21 | NUR ---
PT enjoyes Ensure and vanilla ice cream mixed in.
[2021-07-26] VITALS (777 sets, daily range): BP systolic 117–157; BP diastolic 68–97; PULSE 56–87; TEMP 96.9–98.7; O2SAT 75–100
[2021-07-26 05:43] LABS: HEMATOCRIT 38.3 % (42.0-52.0); HEMOGLOBIN 13.6 g/dl (13.5-18.0); MEAN CELL VOLUME 87 fl (80.0-100.0); MEAN CORPUSCULAR HEMOGLOBIN 31 pg (27-31); MEAN CORPUSCULAR HGB CONC 36 g/dl (33.0-37.0); MEAN PLATELET VOLUME 11.9 fl (7.4-10.4); PLATELET COUNT 228 K/mm3 (130-400); RED BLOOD COUNT 4.41 M/mm3 (4.20-5.60); REDCELL DISTRIBUTION WIDTH-CV 12.9 % (11.5-14.5)
[2021-07-26 05:50] LABS: ARTERIAL BLD GAS O2 SATURATION 95.8 % (92-100); ARTERIAL BLD GAS TCO2 CT 24.6; ARTERIAL BLOOD GAS BASE EXCESS -0.1 (-2-2); ARTERIAL BLOOD GAS HCO3 23.5 meq/L (22-26); ARTERIAL BLOOD GAS PCO2 35.3 mmHg (35-45); ARTERIAL BLOOD GAS PO2 76.2 mmHg (80-100); ARTERIAL BLOOD GAS pH 7.44 (7.35-7.45)
[2021-07-26 06:13] LABS: CALCIUM 8.2 mg/dL (8.4-10.2); CREATININE, serum 0.73 mg/dL (0.72-1.25); POTASSIUM 4.7 mmol/L (3.5-4.5)
[2021-07-26 06:29] LABS: BAND 4 % (0-10); NEUTROPHILS 90 % (42.0-75.2)
[2021-07-26 06:30] LABS: BURR CELLS 1+; LYMPHOCYTE 4 % (20.0-51.0); PLATELET ESTIMATE NORMAL (NORMAL)
[2021-07-26 12:48] LABS: ARTERIAL BLD GAS TCO2 CT 22.3; ARTERIAL BLOOD GAS BASE EXCESS -2.1 (-2-2); ARTERIAL BLOOD GAS HCO3 21.3 meq/L (22-26); ARTERIAL BLOOD GAS PCO2 32.5 mmHg (35-45); ARTERIAL BLOOD GAS PO2 91.3 mmHg (80-100); ARTERIAL BLOOD GAS pH 7.43 (7.35-7.45)
--- NOTE | 2021-07-26 18:30 | NUR ---
PATIENT EATING BETTER TODAY; ORDERED BREAKFAST AND LUNCH MEALS AND ATE APPROX 50% EACH TIME; STILL DRINKS AND PREFERS THE GLUCERNA DRINKS MIXED WITH ICE CREAM. PATIENT REMAINED ON AIRVO ALL DAY TODAY AND O2 SATS REMAINED IN THE MID 90S FOR THE MAJORITY OF THE DAY, WITH THE OCCASSIONAL DIPS WHEN HE WAS EXERTING HIMSELF (E.G. WHEN HE WORKED WITH PT THIS MORNING); PATIENT PREFERS THE AIRVO TO THE BIPAP BUT IS OK WITH WEARING IT OVERNIGHT TONIGHT.
[2021-07-27] VITALS (251 sets, daily range): BP systolic 127–155; BP diastolic 87–103; PULSE 54–69; TEMP 98–98.8; O2SAT 80–99
--- NOTE | 2021-07-27 04:00 | NUR ---
PT RESTING WELL ON BIPAP. DENIES PAIN, STATES NO NEEDS. WILL CONTINUE TO MONITOR.
[2021-07-27 05:19] LABS: ARTERIAL BLD GAS O2 SATURATION 93.5 % (92-100); ARTERIAL BLOOD GAS BASE EXCESS -0.9 (-2-2); ARTERIAL BLOOD GAS HCO3 23.8 meq/L (22-26); ARTERIAL BLOOD GAS PCO2 39.7 mmHg (35-45); ARTERIAL BLOOD GAS PO2 69.2 mmHg (80-100)
[2021-07-27 05:39] LABS: HEMATOCRIT 39.5 % (42.0-52.0); HEMOGLOBIN 13.8 g/dl (13.5-18.0); MEAN CELL VOLUME 86 fl (80.0-100.0); MEAN CORPUSCULAR HEMOGLOBIN 30 pg (27-31); MEAN CORPUSCULAR HGB CONC 35 g/dl (33.0-37.0); MEAN PLATELET VOLUME 11.9 fl (7.4-10.4); PLATELET COUNT 250 K/mm3 (130-400); RED BLOOD COUNT 4.61 M/mm3 (4.20-5.60); REDCELL DISTRIBUTION WIDTH-CV 12.9 % (11.5-14.5)
[2021-07-27 05:51] LABS: CREATININE, serum 0.73 mg/dL (0.72-1.25); POTASSIUM 4.7 mmol/L (3.5-4.5)
[2021-07-27 06:17] LABS: BAND 6 % (0-10); METAMYELOCYTE 3 % (0-0); NEUTROPHILS 89 % (42.0-75.2); PLATELET ESTIMATE NORMAL (NORMAL)
[2021-07-27 06:18] LABS: BURR CELLS 1+
--- NOTE | 2021-07-27 10:00 | NUR ---
PT requested to use commonde in room. PT was assisted, but became SOA. PT was on Airvo at 60 L 80 % but needed to be increased to 90% to maintain a SAT > 87%. PT needed increased oxygen for about 10 minutes before returning to current settings. PT stated " That took a lot out of me and im very tired now". Discussed with PT that we will use bedpan. Will continue to evaluate with PT/OT for weakness and increase ADLs as tolerated and per oxygen needs.
--- NOTE | 2021-07-27 12:10 | NUR ---
No information is to be given to Christina Mccabe. PT stated that this family memeber called as was given information, and the PT stated he wants no information to be given to her. PT was reassured that we will not give out information to the family unless they know his privacy code, Mahendra [id number].
--- NOTE | 2021-07-27 12:14 | NUR ---
PT states that family member Christina stated " She has a Spy that is telling her information".
[2021-07-27] MEDS ORDERED: NORVASC 10MG10 MG PO (20:20)
[2021-07-27] MEDS ORDERED: ZESTORETIC 12.51 TA1 PO (20:20)
--- NOTE | 2021-07-27 20:32 | NUR ---
PM ASSESSMENT COMPLETE. PT ON AIRVO AT 75%, NO NOTED DYSPNEA. ABLE TO HAVE CONVERSATION WITH EASE. PT HYPERTENSIVE, CALL TO [employer] TO RESTART HOME MEDS FOR HTN. PT DENIES PAIN, REPORTS NO NEEDS. PLAN TO WEAR BIPAP FOR SLEEP. WILL CONTINUE TO MONITOR.
[2021-07-28] VITALS (310 sets, daily range): BP systolic 102–141; BP diastolic 62–87; PULSE 57–84; TEMP 97.5–98.4; O2SAT 84–99
[2021-07-28 04:24] LABS: ARTERIAL BLD GAS O2 SATURATION 95.3 % (92-100); ARTERIAL BLD GAS TCO2 CT 25.5; ARTERIAL BLOOD GAS HCO3 24.4 meq/L (22-26); ARTERIAL BLOOD GAS PCO2 35.1 mmHg (35-45); ARTERIAL BLOOD GAS PO2 74.3 mmHg (80-100); ARTERIAL BLOOD GAS pH 7.46 (7.35-7.45)
[2021-07-28 05:52] LABS: HEMATOCRIT 41.7 % (42.0-52.0); HEMOGLOBIN 14.5 g/dl (13.5-18.0); MEAN CELL VOLUME 85 fl (80.0-100.0); MEAN CORPUSCULAR HEMOGLOBIN 29 pg (27-31); MEAN CORPUSCULAR HGB CONC 35 g/dl (33.0-37.0); MEAN PLATELET VOLUME 11.7 fl (7.4-10.4); PLATELET COUNT 287 K/mm3 (130-400); RED BLOOD COUNT 4.93 M/mm3 (4.20-5.60); REDCELL DISTRIBUTION WIDTH-CV 12.9 % (11.5-14.5)
[2021-07-28 06:08] LABS: CALCIUM 8.5 mg/dL (8.4-10.2); CREATININE, serum 0.73 mg/dL (0.72-1.25); POTASSIUM 4.7 mmol/L (3.5-4.5)
[2021-07-28 06:30] LABS: LYMPHOCYTE 2 % (20.0-51.0); NEUTROPHILS 95 % (42.0-75.2); PLATELET ESTIMATE NORMAL (NORMAL)
--- NOTE | 2021-07-28 20:58 | NUR ---
PT SITTING UP IN BED ON AIRVO CURRENTLY. REQUESTING TO NOT USE BIPAP OVERNIGHT TO SEE HOW DOES ON AIRVO. RT AGREES WITH THAT PLAN, WILL CHANGE NEEDED IF SATS BELOW 88%. TALKED TO OVER SPEAKER PHONE WHILE IN ROOM WITH PT, ANSWERED QUESTIONS AND READ DR DECKER AND DR MAYS NOTES TO HER NEITHER DOCTOR HAS CALLED DESPITE BEING ASKED FOR AN UPDATE. PT REPORTS NO NEEDS, DENIES PAIN. WILL CONTINUE TO MONITOR.
[2021-07-29] VITALS (114 sets, daily range): BP systolic 92–121; BP diastolic 66–83; PULSE 67–82; TEMP 97.8–98.8; O2SAT 86–99
[2021-07-29 05:49] LABS: ARTERIAL BLD GAS O2 SATURATION 94.6 % (92-100); ARTERIAL BLD GAS TCO2 CT 26.7; ARTERIAL BLOOD GAS HCO3 25.6 meq/L (22-26); ARTERIAL BLOOD GAS PCO2 36.6 mmHg (35-45); ARTERIAL BLOOD GAS pH 7.46 (7.35-7.45)
[2021-07-29 05:58] LABS: HEMATOCRIT 39.8 % (42.0-52.0); HEMOGLOBIN 13.9 g/dl (13.5-18.0); MEAN CELL VOLUME 84 fl (80.0-100.0); MEAN CORPUSCULAR HEMOGLOBIN 29 pg (27-31); MEAN CORPUSCULAR HGB CONC 35 g/dl (33.0-37.0); MEAN PLATELET VOLUME 11.2 fl (7.4-10.4); PLATELET COUNT 233 K/mm3 (130-400); RED BLOOD COUNT 4.72 M/mm3 (4.20-5.60); REDCELL DISTRIBUTION WIDTH-CV 12.9 % (11.5-14.5)
[2021-07-29 06:13] LABS: CALCIUM 7.9 mg/dL (8.4-10.2); CREATININE, serum 0.74 mg/dL (0.72-1.25); POTASSIUM 4.8 mmol/L (3.5-4.5)
[2021-07-29 06:23] LABS: BAND 3 % (0-10)
[2021-07-29 06:24] LABS: LYMPHOCYTE 3 % (20.0-51.0); NEUTROPHILS 87 % (42.0-75.2); PLATELET ESTIMATE NORMAL (NORMAL)
--- NOTE | 2021-07-29 08:30 | NUR ---
Patient awake and alert in bed and anxiously awaiting breakfast. Currenly on 60L and 60% Air VO. Remains 88-92% on this setting and denies in increased shortness of breath or other concerns at this time. VS stable; will continue to monitor.
--- NOTE | 2021-07-29 09:52 | NUR ---
SW attended clinical rounds. The patient is to transfer to the medical floor today. He remains on 60 liters of oxygen, via high flow cannula. SW to continue to monitor.
--- NOTE | 2021-07-29 11:30 | NUR ---
Transported upstairs on high flow mask. Alert and oriented and in no distress upon transfer. Met accepting RN in the room with RT.
--- NOTE | 2021-07-29 18:17 | NUR ---
Patient arrived to the floor at approx. 1130 from ICU. Patient is A&Ox4, independent in his room and using the BSC. Picc in the WILDER flushes well, antibiotics are currently running @ 25mL/hr (Zosyn). Patient is very pleasant and does not have any complaints/concers. Patient remains on Airvo @ 60L, 60%.
[2021-07-30 03:17] VITALS: BP 109/57; PULSE 72; TEMP 97.9
--- NOTE | 2021-07-30 06:00 | NUR ---
PT on airvo 60L 60%, up to BSC ad dacia, required SS insulin @HS, picc line to gemma patent/secure. no c/o pain or discomfort in LLE.
[2021-07-30 06:36] LABS: HEMATOCRIT 40.9 % (42.0-52.0); HEMOGLOBIN 14.3 g/dl (13.5-18.0); MEAN CELL VOLUME 84 fl (80.0-100.0); MEAN CORPUSCULAR HEMOGLOBIN 29 pg (27-31); MEAN CORPUSCULAR HGB CONC 35 g/dl (33.0-37.0); MEAN PLATELET VOLUME 11.9 fl (7.4-10.4); PLATELET COUNT 259 K/mm3 (130-400); RED BLOOD COUNT 4.86 M/mm3 (4.20-5.60)
[2021-07-30 06:45] LABS: CALCIUM 7.9 mg/dL (8.4-10.2); CREATININE, serum 0.74 mg/dL (0.72-1.25); POTASSIUM 4.5 mmol/L (3.5-4.5)
[2021-07-30 07:47] LABS: BAND 6 % (0-10); LYMPHOCYTE 4 % (20.0-51.0); NEUTROPHILS 86 % (42.0-75.2); PLATELET ESTIMATE NORMAL (NORMAL)
[2021-07-30 08:21] VITALS: BP 114/59; PULSE 73; TEMP 98.4
--- NOTE | 2021-07-30 08:40 | NUR ---
PT SITTING UP SUPINE IN BED ON AIRVO. PT STATES THAT HE DOES NOT NEED ANYTHING AT THIS TIME. PT STATES THAT HE IS NOT HAVING ANY PAIN. CALL LIGHT IS WITHIN REACH.
[2021-07-30 11:50] VITALS: BP 105/68; PULSE 73; TEMP 97.6
--- NOTE | 2021-07-30 15:15 | NUR ---
Patient is day 13 post covid positive test. Now on 7liters of oxygen (no oxygen requirements at home pre covid); afebrile; no cough. Infection control recommends discontinuing COVID transmission precautions.
[2021-07-30 16:59] VITALS: BP 103/69; PULSE 73; TEMP 97.9
--- NOTE | 2021-07-30 18:48 | NUR ---
PT SITTING UP IN BED ON AIRVO. PT STATES NO NEEDS OR PAIN AT THIS TIME. CALL LIGHT IS WITHIN REACH.
[2021-07-30 18:59] VITALS: BP 101/59; PULSE 785; TEMP 97.8
[2021-07-30 23:30] VITALS: BP 103/73; PULSE 76; TEMP 97.7
[2021-07-31 05:26] LABS: ARTERIAL BLD GAS O2 SATURATION 94.9 % (92-100); ARTERIAL BLD GAS TCO2 CT 27.2; ARTERIAL BLOOD GAS BASE EXCESS 2.4 (-2-2); ARTERIAL BLOOD GAS HCO3 26.1 meq/L (22-26); ARTERIAL BLOOD GAS PCO2 37.4 mmHg (35-45); ARTERIAL BLOOD GAS PO2 72.4 mmHg (80-100); ARTERIAL BLOOD GAS pH 7.46 (7.35-7.45)
[2021-07-31 05:45] VITALS: BP 138/79; PULSE 83; TEMP 97.4
--- NOTE | 2021-07-31 06:19 | NUR ---
NO NEW ISSUES NOTED OR REPORTED BY PATIENT. PATIENT IN GREAT SPIRITS THROUGHOUT THE NIGHT.
[2021-07-31 06:22] LABS: HEMATOCRIT 46.7 % (42.0-52.0); MEAN CELL VOLUME 86 fl (80.0-100.0); MEAN CORPUSCULAR HEMOGLOBIN 29 pg (27-31); MEAN CORPUSCULAR HGB CONC 34 g/dl (33.0-37.0); MEAN PLATELET VOLUME 11.3 fl (7.4-10.4); PLATELET COUNT 245 K/mm3 (130-400); RED BLOOD COUNT 5.45 M/mm3 (4.20-5.60); REDCELL DISTRIBUTION WIDTH-CV 13.2 % (11.5-14.5)
[2021-07-31 06:46] LABS: C-REACTIVE PROTEIN 0.36 mg/dL (0.00-0.50); CALCIUM 8.5 mg/dL (8.4-10.2); CREATININE, serum 0.8 mg/dL (0.72-1.25)
[2021-07-31 08:00] VITALS: BP 118/71; PULSE 85; TEMP 97.5
[2021-07-31 12:00] VITALS: BP 118/63; PULSE 90; TEMP 98
--- NOTE | 2021-07-31 12:41 | NUR ---
NIMESH staffed with the clinical team about if the patient would be a candidate for [facility]. The hospitalist would like the patient to be evaluated by [facility]. NIMESH contacted and faxed a referral to Bin at [facility] Awaiting screen.
--- NOTE | 2021-07-31 13:02 | NUR ---
Inquiry from staff this AM re: need for continued transmission precautions. CDC Guidance Update of 06-14-21 "Ending Isolation & Precautions for People with COVID-19" - this document categorizes patient condition and risks and recommends duration of precautions. Mr. Prescott falls into the higher risk group 1) requiring AIRVO at 60% 2) co-morbidities of diabetic and hx/esophageal cancer. Transmission precautions should remain in place for a minimum of 20 days and should show continued clinical improvement. Tested Positive at this facility 07-19-21 - Plus 20 days means precautions until 08-08-21.
[2021-07-31 16:00] VITALS: BP 109/68; PULSE 91; TEMP 98.6
[2021-07-31 20:00] VITALS: BP 111/64; PULSE 91; TEMP 97.9
[2021-07-31 23:25] VITALS: BP 107/63; PULSE 90; TEMP 97.9
[2021-08-01 04:27] VITALS: BP 107/57; PULSE 81; TEMP 97.8
[2021-08-01 06:34] LABS: CALCIUM 8.4 mg/dL (8.4-10.2); CREATININE, serum 0.82 mg/dL (0.72-1.25); POTASSIUM 4.4 mmol/L (3.5-4.5)
[2021-08-01 08:24] VITALS: BP 96/62; PULSE 80; TEMP 97.9
--- NOTE | 2021-08-01 11:39 | NUR ---
NIMESH contacted the patient's , Marietta, to discuss the team's recommendation for [facility]. Marietta reports that her sister was at the [facility] in [place] and that it was disgusting and not a good experience. She state that if smelt like pee. She would prefer not to go to that one. She is open to the [place] location, but is hopeful that the patient would be able to go home. NIMESH contacted Bin at [facility] and updated him on the above. Bin states that the [facility] has a waitlist and the soonest they are able to take another referral is next Thursday. Bin states that he will contact Marietta to address her concerns and get back to this SW. He states that he did start auth late yesterday and is hopeful to hear back from insurance later today or tomorrow.
[2021-08-01 11:58] VITALS: BP 112/66; PULSE 80; TEMP 97.5
--- NOTE | 2021-08-01 13:56 | NUR ---
Bin, at [facility], contacted . He was able to speak to the patient's , Marietta, and address her concerns. Their family member did get better while at [facility], but the room next door smelled like urine. Bin reports that he will try for [facility] for the patient and his , but if things have not changed and [facility] still has a waitlist, they will have to look at [facility]. Bin states he reviewed that with Marietta and Marietta is agreeable to the plan.
[2021-08-01 16:50] VITALS: BP 110/67; PULSE 84; TEMP 97.5
--- NOTE | 2021-08-01 19:04 | NUR ---
PT HAVING DIFFICULTY SPEAKING INTERMITTENTLY THIS AFTERNOON. PT EXPLAINS AT TIMES HE KNOWS WHAT HE WANTS TO SAY BUT CAN'T GET HIS "VOICE OUT". NEUROS NEGATIVE. DR WILDER NOTIFIED, CT OF HEAD ORDERED. PT FEELS WHEN HE IS MORE RELAXED HE HAS LESS OF AN ISSUE AND THAT HE GETS VERY FRUSTRATED WHEN THESE EPISODES HAPPEN, HE EXPLAINS THAT HE FEELS A SLIGHT "TIGHTENING" IN HIS THROAT WHEN HE ISN'T ABLE TO SPEAK. VSS, O2 READS 94%.
[2021-08-01 19:22] VITALS: BP 102/55; PULSE 81; TEMP 97.6
--- NOTE | 2021-08-01 21:13 | NUR ---
Patient assessed at this time. Alert and oriented x 4, and able to make needs known. Denies pain and discomfort. PICC to RUE. Reports SOB and dyspnea with exertion. On Airvo at 45L 70%. LS CTA. HRR. Telemetry in place. BSAx4. No edema. During conversation, noted patient to lose his ability to speak for short periods of time, then able to talk again. Patient has been doing this on day shift as well and CT head was completed. Encouraged patient to take his time. Voices no questions, needs, or concerns at this time. In bed with call light within reach.
[2021-08-01 23:07] VITALS: BP 111/59; PULSE 73; TEMP 98
[2021-08-02 03:27] VITALS: BP 108/83; PULSE 67; TEMP 97.5
--- NOTE | 2021-08-02 05:01 | NUR ---
Patient denies pain and discomfort this morning. Reports sleeping very well during the night. Continues on Airvo at 45L 70%. Voices no questions, needs, or concerns at this time. In bed with call light within reach.
[2021-08-02 05:27] LABS: ARTERIAL BLOOD GAS BASE EXCESS -0.4 (-2-2); ARTERIAL BLOOD GAS HCO3 22.4 meq/L (22-26); ARTERIAL BLOOD GAS PO2 58.5 mmHg (80-100); ARTERIAL BLOOD GAS pH 7.46 (7.35-7.45)
[2021-08-02 05:28] LABS: ARTERIAL BLD GAS O2 SATURATION 91.9 % (92-100); ARTERIAL BLD GAS TCO2 CT 23.4
[2021-08-02 06:02] LABS: HEMATOCRIT 43.8 % (42.0-52.0); HEMOGLOBIN 14.9 g/dl (13.5-18.0); MEAN CELL VOLUME 86 fl (80.0-100.0); MEAN CORPUSCULAR HEMOGLOBIN 29 pg (27-31); MEAN CORPUSCULAR HGB CONC 34 g/dl (33.0-37.0); MEAN PLATELET VOLUME 11.6 fl (7.4-10.4); PLATELET COUNT 220 K/mm3 (130-400); RED BLOOD COUNT 5.11 M/mm3 (4.20-5.60); REDCELL DISTRIBUTION WIDTH-CV 13.2 % (11.5-14.5)
[2021-08-02 06:15] LABS: CALCIUM 8.1 mg/dL (8.4-10.2); CREATININE, serum 0.8 mg/dL (0.72-1.25); POTASSIUM 4.4 mmol/L (3.5-4.5)
--- NOTE | 2021-08-02 07:31 | NUR ---
FOUND PT AT 85_88% ON 45LPM 60%. INCREASED TO 60 LPM AND 90%. SO2 91% RN NOTIFIED
[2021-08-02 07:47] LABS: BAND 7 % (0-10); LYMPHOCYTE 5 % (20.0-51.0); METAMYELOCYTE 2 % (0-0); NEUTROPHILS 84 % (42.0-75.2)
[2021-08-02 07:48] LABS: PLATELET ESTIMATE NORMAL (NORMAL)
[2021-08-02 08:08] VITALS: BP 106/57; PULSE 81; TEMP 97.5
--- NOTE | 2021-08-02 08:55 | NUR ---
PT in the room working w/ the patient upon entry. RT informed this RN that the patient had to be maxxed out on airvo this morning d/t O2 sats in the mid 80s. Patient experiencing GODOY and was pursed-lip breathing. Patient questioned why he gets so SOB when moving around. This RN explained to the patient why this happens and that it takes time for this to get better. Otherwise, patient is in a very pleasant mood. Cleo held this morning d/t low BP.
--- NOTE | 2021-08-02 11:13 | NUR ---
Collaborated with hospitalist team. Patient needs to wean down on oxygen before transfer to [facility]. Bin with [facility] notified of the above and will continue to work on the patient's authorization. If [facility] is not approved today then the soonest would be Thursday.
[2021-08-02 12:02] VITALS: BP 103/73; PULSE 79; TEMP 98.1
[2021-08-02 16:28] VITALS: BP 103/69; PULSE 84; TEMP 98.1
--- NOTE | 2021-08-02 17:39 | NUR ---
Patient has done okay today. Airvo decreased from 60L to 55L, and is tolerating this well.
[2021-08-02 19:05] VITALS: BP 100/64; PULSE 85; TEMP 98.2
--- NOTE | 2021-08-02 22:11 | NUR ---
Patient assessed around 2019. Alert and oriented, and able to make needs known. Denies pain and discomfort. PICC to RUE. Reports SOB and dyspnea with exertion. On Airvo at 55L 70%. LS CTA. HRR. Telemetry in place. Voices no questions, needs, or concerns at this time. In bed with call light within reach.
[2021-08-02 23:44] VITALS: BP 113/73; PULSE 78; TEMP 97.5
[2021-08-03 03:40] VITALS: BP 107/60; PULSE 71; TEMP 97.3
--- NOTE | 2021-08-03 05:31 | NUR ---
Continues on Airvo 55L 80%. Denies pain and discomfort. Voices no questions, needs, or concerns at this time. In bed with call light within reach.
[2021-08-03 06:26] LABS: HEMOGLOBIN 14.3 g/dl (13.5-18.0); MEAN CELL VOLUME 87 fl (80.0-100.0); MEAN CORPUSCULAR HEMOGLOBIN 29 pg (27-31); MEAN CORPUSCULAR HGB CONC 33 g/dl (33.0-37.0); MEAN PLATELET VOLUME 11.6 fl (7.4-10.4); PLATELET COUNT 194 K/mm3 (130-400); RED BLOOD COUNT 4.92 M/mm3 (4.20-5.60); REDCELL DISTRIBUTION WIDTH-CV 13.4 % (11.5-14.5)
[2021-08-03 06:43] LABS: CALCIUM 8.1 mg/dL (8.4-10.2); CREATININE, serum 0.75 mg/dL (0.72-1.25); POTASSIUM 4.5 mmol/L (3.5-4.5)
[2021-08-03 08:19] VITALS: BP 105/65; PULSE 74; TEMP 98.2
[2021-08-03 11:30] VITALS: BP 102/64; PULSE 78; TEMP 98.5
--- NOTE | 2021-08-03 13:41 | NUR ---
Patient doing well and has not had any concerns. Report given to Juana.
--- NOTE | 2021-08-03 14:11 | NUR ---
Report recieved from MARCELINA Drew. Patient currently requiring 55 L at 71% via airvo. Denies any pain, discomfort, or further needs at this time. Tele DC'd per orders. VSS. Patient A&O. Call light in reach.
--- NOTE | 2021-08-03 15:28 | NUR ---
Patient has had an ok day. Currently on 4L of O2 via nasal cannula. Patient continues to have soft BP's. All other VSS. Patient denies any pain, discomfort, SOA, or further needs at this time. Call light in reach. Family at the bedside.
[2021-08-03 16:32] VITALS: BP 117/69; PULSE 77; TEMP 98.1
[2021-08-03 19:16] VITALS: BP 90/58; PULSE 90; TEMP 97.5
[2021-08-03 23:24] VITALS: BP 122/67; PULSE 83; TEMP 98.3
[2021-08-04 04:45] VITALS: BP 101/65; PULSE 75; TEMP 98.2
--- NOTE | 2021-08-04 05:25 | NUR ---
PATIENT REPORTS HE IS FEELING MUCH BETTER. CONTINUES ON AIRVO. V/S STABLE. NO NEW ISSUES NOTED OR REPORTED BY PATIENT.
[2021-08-04 08:00] VITALS: BP 100/50; PULSE 88; TEMP 98.2
--- NOTE | 2021-08-04 09:59 | NUR ---
PT SITTING SUPINE IN BED WITH AIRVO ON. PT IN VERY GOOD SPIRITS. PT STATES THAT HE WOULD LIKE TO HAVE BREAKFAST TRAY REMOVED. TRAY WAS TAKEN OUT. PT STATES NO OTHER NEEDS AT THIS TIME. PT DENIES PAIN. CALL LIGHT IS WITHIN REACH.
[2021-08-04 11:47] VITALS: BP 106/68; PULSE 80; PULSE 801; TEMP 98.5
--- NOTE | 2021-08-04 12:51 | NUR ---
DR. CHANDRA INFORMED SW THAT PT IS READY TO BE DC TO [facility].
[2021-08-04 16:10] VITALS: BP 107/69; PULSE 99; TEMP 98.3
--- NOTE | 2021-08-04 16:19 | NUR ---
PT SITTING UP IN BED WATCHING TV. PT STATES NO NEEDS OR PAIN ATT. CALL LIGHT IS WITHIN REACH.
--- NOTE | 2021-08-04 18:25 | NUR ---
PT LAYING IN BED WITH AIRVO ON. PT STATES NO NEEDS OR PAIN AT THIS TIME. CALL LIGHT IS WITHIN REACH.
[2021-08-04 19:32] VITALS: BP 132/59; PULSE 92; TEMP 98.3
[2021-08-05 00:42] VITALS: BP 107/66; PULSE 85; TEMP 98.1
[2021-08-05 03:46] VITALS: BP 102/57; PULSE 100; TEMP 97.9
--- NOTE | 2021-08-05 06:33 | NUR ---
NO NEW ISSUES NOTED OR REPORTED THIS SHIFT. PATIENT STATES HE IS FEELING REALLY GOOD.
[2021-08-05 08:10] VITALS: BP 101/77; PULSE 84; TEMP 98
--- NOTE | 2021-08-05 09:21 | NUR ---
Clinical updates faxed to Bin at [facility]
--- NOTE | 2021-08-05 10:04 | NUR ---
Patient working w/ PT upon entering the room. Currently on day 18 of isolation, plan is for patient to come off isolation on the . This RN called ID nurse, Frida, and asked if it was reasonable to retest the patient; And if it came back negative that the patient could come out of isolation.
[2021-08-05 12:18] VITALS: BP 109/67; PULSE 84; TEMP 98.2
[2021-08-05] MEDS ORDERED: ELIQUIS 5MG PO (12:47)
--- NOTE | 2021-08-05 12:51 | NUR ---
Patient will need medication voucher upon discharge for the following medications: Prinivil 10mg qty 30 $10.55 , Lasik 40 mg qty 30 $11.00, Coreg 25 mg qty 60 $11.38 and Aldactone 25 mg qty 30 $11.67. Total $44.60. Medication voucher faxed to [facility].
--- NOTE | 2021-08-05 13:24 | NUR ---
Met with patient and patient's at bedside. Patient voices his frustrations about transfer and that he is not happy about going to [facility]. Patient voices concern over a complaint he made while in the ICU that someone spoke with his sister without his consent. House Sup notified and reach out to risk management. Asked house to speak with the patient.
--- NOTE | 2021-08-05 14:26 | NUR ---
Patient discharged to [facility] in , via [facility]. EMS. present at time of discharge. Patient moved to [facility] well, did get SOB.
--- NOTE | 2021-08-05 14:44 | NUR ---
Report given to Keysha at [facility].
--- NOTE | 2021-08-05 15:09 | NUR ---
Discharge orders faxed to [facility].
== END 2021-08-05 14:30 | DRG 177 ==
LOC: COL.ER 19:29 → MEDICAL 22:42 → ICU 22:42 → MEDICAL 23:45 → ICU 07-24 09:27 → MEDICAL 07-24 09:27 → ICU 07-29 00:32 → MEDICAL 07-29 11:54
PROVIDERS: Internal Medicine; Internal Medicine Pulmonary Disease; Physician Assistant; Student in an Organized Health Care Education/Training Program; ADMIT Internal Medicine
PROC: 5A0945A Assistance with Respiratory Ventilation, 24-96 Consecutive Hours, High Flow/Velocity Cannula (ICD-10-PCS; 2021-07-19)
PROC: XW033E5 Introduction of Remdesivir Anti-infective into Peripheral Vein, Percutaneous Approach, New Technology Group 5 (ICD-10-PCS; 2021-07-19)
PROC: XW033H5 Introduction of Tocilizumab into Peripheral Vein, Percutaneous Approach, New Technology Group 5 (ICD-10-PCS; 2021-07-19)
PROC: 02HV33Z Insertion of Infusion Device into Superior Vena Cava, Percutaneous Approach (ICD-10-PCS; 2021-07-22)
PROC: 5A09457 Assistance with Respiratory Ventilation, 24-96 Consecutive Hours, Continuous Positive Airway Pressure (ICD-10-PCS; principal; 2021-07-25)
DX: U07.1 COVID-19 (principal); J12.82 Pneumonia due to coronavirus disease 2019; J96.01 Acute respiratory failure with hypoxia; E87.1 Hypo-osmolality and hyponatremia; I82.402 Acute embolism and thrombosis of unspecified deep veins of left lower extremity; J98.2 Interstitial emphysema; E11.9 Type 2 diabetes mellitus without complications; K21.9 Gastro-esophageal reflux disease without esophagitis; I10 Essential (primary) hypertension; D64.9 Anemia, unspecified; Z79.84 Long term (current) use of oral hypoglycemic drugs; Z79.891 Long term (current) use of opiate analgesic; Z96.653 Presence of artificial knee joint, bilateral; Z85.01 Personal history of malignant neoplasm of esophagus; Z87.891 Personal history of nicotine dependence
CPT/HCPCS: 99223-AI; 99231-AI; 99232-AI; 99233-AI; 99239; A9284; C1751; J0248; J1100; J1450; J1650; J1815; J2543; J3480; J7030; J7050; J8540; Q0249; Q9967